=== PATIENT | male | born 1960 | race Caucasian/White ===

== ENCOUNTER → 2019-10-09 16:03 | Outpatient (CLI) | payer BC, SELFPAY ==
[2019-10-09 16:50] LABS: International Normalized Ratio 2.5
== END ==
PROVIDERS: PCP Family Medicine; Referring Provider Family Medicine; Visit Provider Family Medicine
DX: Z86.711 Personal history of pulmonary embolism (principal)
CPT/HCPCS: 85610

== ENCOUNTER 2022-07-17 07:45 | Emergency (ER) | payer BC, SELFPAY ==
[2022-07-17 07:48] VITALS: BP 127/89; PULSE 65; RESP 22; TEMP 36.6; O2SAT 100; BMI 33.7
--- NOTE | 2022-07-17 07:53 | CT_ITS ---
STUDY: CT ABDOMEN AND PELVIS WITHOUT CONTRAST REASON FOR EXAM: Male, 61 years old. Acute onset of left flank pain. History of kidney stones. RADIATION DOSAGE (If Supplied By Facility): CTDIvol = ( 24.44 ) mGy, DLP = ( 1408.84 ) mGycm TECHNIQUE: Transaxial images were obtained from the dome of the diaphragm to the symphysis pubis without oral contrast, and without intravenous contrast. Sagittal and coronal images were reconstructed. Individualized dose optimization techniques were used for this CT. COMPARISON: None. FINDINGS: The visualized lung bases are unremarkable. Coronary artery calcifications. Normal liver. There is a solitary gallstone. This measures 7 mm. Normal spleen. Normal pancreas. Normal bilateral adrenal glands. Normal right kidney. Mild degree of left hydronephrosis and left hydroureter due to a recently passed calculus measuring 4.7 mm. The calculus is at the base of the bladder on the left side just distal to the left ureterovesical junction Normal visualized stomach. Normal small intestine. There are multiple colonic diverticula consistent with diverticulosis. The appendix is visualized and appears normal. There is scattered atherosclerotic calcification of the abdominal aorta and its major visceral branches, without a demonstrated aneurysm. There is an IVC filter in place. There is borderline retroperitoneal lymphadenopathy with enlarged nodes no greater than 10mm in the short axis diameter. Mild degree of increased markings seen in the mesenteric fat at the level of the root of the mesentery. Small lymph nodes are seen within the root of the mesentery. This is a nonspecific finding. Mild degree of bladder wall thickening. There is enlargement of the prostate gland. The prostate measures 5.5 cm x 5.7 cm. This causes indentation at the bladder base. Small bilateral inguinal hernias containing fat. There are diffuse degenerative changes of the visualized lumbar spine. Prior screw and intramedullary arsh fixation device at the L3-L4 and L4-L5 levels. CT/Abdomen/Pelvis without Cont IMPRESSION: 4.7 mm calculus in the base of the bladder on the left side in keeping with recently passed left ureteral calculus. Left hydronephrosis and left hydroureter. Prostatic enlargement with indentation at the bladder base. Nonspecific increased markings in the root of the mesentery with a small mesenteric lymph nodes. Solitary gallstone. Electronically Signed: Tan Agrawal MD at 9:08 EST ,
--- NOTE | 2022-07-17 07:54 | EX.ED.GUMALE ---
HPI History of Present Illness Chief Complaint: Flank Pain Narrative Narrative: 61-year-old male past medical history of DVTs, on blood thinners, previous kidney stones remotely by a few years presents with sudden onset of left flank pain that began approximately 3 hours ago. It woke him from sleep. It sharp and stabbing in his left flank radiating towards the front. He denies any dysuria or hematuria. No exacerbating or alleviating factors. He is nauseated but has not vomited at home, but on arrival to the emergency department vomited once. He has not taken anything for analgesia. No previous abdominal surgeries. PFSH PFSH Home Medications oxycodone-acetaminophen 5 mg-325 mg tablet (Percocet) 1 tab PO Q6H PRN pain 3 days #12 tabs 07/17/22 [Rx Last Taken Unknown] Allergy/AdvReac Type Severity Reaction Status Date / Time No Known Allergies Allergy Verified 07/17/22 07:50 Social History Smoking Status: Never smoker ROS ROS ED ROS Narrative Constitutional: No fever, no chills. HEENT: No sore throat. No neck pain. No loss of vision. No rhinorrhea. Cardiovascular: No chest pain. No palpitations. No pedal edema. Respiratory: No cough, no shortness of breath. Abdominal: No abdominal pain. Positive nausea. 1 episode of vomiting in the emergency department. Genitourinary: No dysuria. No hematuria. Positive left flank pain radiating towards front. Musculoskeletal: No myalgias. No arthralgias. Neurologic: No headaches. No dizziness. No lightheadedness. Skin: No rash. No change in color. Psychiatric: No depression. No anxiety. EXAM Physical Exam Narrative Exam Narrative: Afebrile. Vital signs noted. Appears mildly uncomfortable laying on cot. HEENT: Normocephalic. Atraumatic. PERRL, EOMI. Neck soft and supple. No point tenderness or step off. Cardiovascular: Regular rate and rhythm. No murmurs, rubs, or gallops appreciated. Respiratory: No tachypnea. Lungs clear to auscultation bilaterally. Gastrointestinal: Abdomen soft, nontender, with normoactive bowel sounds. No rebound or guarding. No CVA tenderness to percussion. Neurological: Awake. Alert. Nonfocal, nonlateralizing. Skin: No rash. Normal color. No pallor. Musculoskeletal: No pedal edema. Full range of motion extremities. Const Vital Signs: 07/17/22 07:48 Temperature 97.8 F Temperature Source Temporal Pulse Rate 65 Respiratory Rate 22 H Blood Pressure 127/89 H Blood Pressure Mean 101 Pulse Ox 100 Oxygen Delivery Method Room Air MDM MDM MDM Narrative Medical decision making narrative: Suspicion is high for ureterolithiasis. Given his comorbidities, he was administered morphine and ondansetron. IV fluids were administered at 250 mL/h. Comprehensive work-up was pursued including CBC, BMP, urinalysis, and CT imaging of the left flank without contrast. CBC shows normal white count of 4.7, hemoglobin normal at 14.5, platelet count normal at 164. Electrolyte panel shows normal creatinine of 1.15 with slightly elevated BUN of 19. Urinalysis is negative for infection with 5-[address] of the abdomen and pelvis does show a 4.7 mm stone dependent in the bladder consistent with recently passed kidney stone. He does have left ureteral dilation and hydronephrosis on the left. Although he is feeling improved after morphine, I do feel that now his stone has passed, that he can be discharged safely home with follow-up. I wrote him a prescription for 12 Percocet tablets should his pain return. He is already on a blood thinner for DVTs so I do not feel a prescription for NSAIDs would be beneficial including the increased risk of bleeding. He was referred to Dr. Moon. I feel he can be discharged safely home with follow-up. Return instructions were reviewed. Disposition is discharged home in stable condition. Lab Data Attestation: I reviewed the patient's lab results. Labs: Laboratory Results - last 24 hr 07/17/22 07/17/22 07/17/22 08:04 08:04 08:16 WBC 4.7 RBC 5.10 Hgb 14.5 Hct 43.1 MCV 84.5 MCH 28.4 MCHC 33.6 RDW Std Deviation 44.3 H RDW Coeff of [place] 14.3 Plt Count 164 MPV 10.1 Immature Gran % (Auto) 0.200 Neut % (Auto) 56.2 Lymph % (Auto) 30.6 [place] % (Auto) 8.5 Eos % (Auto) 3.2 Baso % (Auto) 1.3 H Absolute Neuts (auto) 2.6 Absolute Lymphs (auto) 1.43 Nucleated RBC % 0 Sodium 140 Potassium 4.0 Chloride 103 Carbon Dioxide 27.0 Anion Gap 10 BUN 19 H Creatinine 1.15 Estim Creat Clear Calc 79.60 Est GFR (MDRD) Af Amer 83 Est GFR (MDRD) Non-Af 68 BUN/Creatinine Ratio 16.5 Glucose 140 H Calcium 8.6 Urine Color Yellow Urine Clarity Clear Urine pH 6.5 Ur Specific [place] 1.020 Urine Protein Negative Urine Glucose (UA) Normal Urine Ketones Negative Urine Occult Blood 150 H Urine Nitrite Negative Urine Bilirubin Negative Urine Urobilinogen Normal Ur Leukocyte Esterase Negative Urine RBC 5-10 SEEN Urine WBC 0 SEEN Ur Squamous Epith Cells 0-5 SEEN Urine Bacteria 0 SEEN Urine Mucus 0 SEEN Radiography Diagnostic Testing: Clinical Impression(s) from Imaging Studies Abdomen/Pelvis CT 07/17/22 07:53 IMPRESSION: 4.7 mm calculus in the base of the bladder on the left side in keeping with recently passed left ureteral calculus. Left hydronephrosis and left hydroureter. Prostatic enlargement with indentation at the bladder base. Nonspecific increased markings in the root of the mesentery with a small mesenteric lymph nodes. Solitary gallstone. Electronically Signed: Tan Agrawal MD at 9:08 EST , Discharge Plan Triage Chief Complaint: Flank Pain ED Provider: Ronald Sen Dx/Rx/DC Orders Clinical Impression: Hydronephrosis with ureteral calculus, Left flank pain Instructions: ED Kidney Stone, Passed, ED Kidney Stone w/ Colic Prescriptions: New oxycodone-acetaminophen [Percocet] 5-325 mg tablet 1 tab PO Q6H PRN (Reason: pain) 3 Days Qty: 12 0RF Stand Alone Forms: ED Work / School Excuse Primary Care Provider: Danny Linda Referrals: Danny Linda MD [Primary Care Provider] - Chris Moon MD [Med Staff - Active Staff] - 3-5 Days if not improving Disposition Disposition: Home, Self Care
[2022-07-17] MEDS: Morphine 4 MG/ML Syringe IV ×2 (08:08→09:17)
[2022-07-17] MEDS: 0.9% Normal Saline 1,000 ML 250 ML IV (08:08)
[2022-07-17] MEDS: Ondansetron 4 MG/2 ML Vial IV (08:08)
[2022-07-17 08:11] LABS: Absolute Lymphocyte Count 1.43 X10^3/uL (0.83-4.51); Absolute Neutrophil Count 2.6 X10^3/uL (2.0-7.7); Basophil# 0.06 X10^3/uL; Basophil% 1.3 % (0-1); Eosinophil# 0.15 X10^3/uL; Eosinophils% 3.2 % (0-5); Hematocrit 43.1 % (40-54); Hemoglobin 14.5 g/dL (13.0-16.5); Lymphocyte # 1.43 X10^3/ul (0.83-4.51); Lymphocyte % 30.6 % (19-41); Mean Corp Hgb Conc 33.6 g/dL (32-36); Mean Corpuscular Hgb 28.4 pg (27.0-32.0); Mean Corpuscular Volume 84.5 fL (80-94); Mean Platelet Vol. 10.1 fl (6.2-12.0); Monocyte% 8.5 % (0-10); NRBC Flagged by Analyzer 0 % (0-5); Neutrophil # 2.63 X10^3/uL (2.7-7.7); Neutrophil % 56.2 % (47-70); Platelet Count 164 K/mm3 (150-450); RBC Distribution Width CV 14.3 % (11.6-14.6); RBC Distribution Width SD 44.3 fl (35.1-43.9); White Blood Count 4.7 K/mm3 (4.4-11.0)
[2022-07-17 08:18] LABS: Bacteria 0 SEEN /hpf (None Seen); Mucous, Urine 0 SEEN /hpf (<or=2+); White Blood Cells 0 SEEN /hpf (0-5)
[2022-07-17 08:20] LABS: Anion Gap 10 (5-15); BUN 19 mg/dL (7-18); BUN/Creat Ratio 16.5 RATIO (10-20); Calcium,Total 8.6 mg/dL (8.5-10.1); Chloride 103 mmol/L (98-107); Creatinine, Serum 1.15 mg/dL (0.70-1.30); EST Glomerular Filtration Rate 68 mL/min (>60); Est Glom Filt Rate - Afr Amer 83 mL/min (>60); Glucose 140 mg/dL (74-106); Sodium Level 140 mmol/L (136-145)
[2022-07-17 08:21] LABS: Color, Urine Yellow (Yellow); Glucose, Dipstick Normal (Normal); Ketone-Dipstick Negative (Negative); Leukocyte Esterase-Dipstick Negative /ul (Negative); Nitrite-Dipstick Negative (Negative); Occult Blood-Urine 150 /ul (Negative); Protein-Dipstick Negative (Negative); Urine Bilirubin Dipstick Negative (Negative); Urine Clarity Clear (Clear); Urine Urobilinogen Normal (Normal); Urine pH 6.5 (5.0 - 8.0)
[2022-07-17 08:29] LABS: Red Blood Cells-Urine 5-10 SEEN /hpf (0-5); Squamous Epithelial Cells - UA 0-5 SEEN /hpf (0-5)
== END 2022-07-17 10:23 | disposition home or self-care (01) ==
PROVIDERS: Emergency Provider Emergency Medicine; PCP Family Medicine; Visit Provider Emergency Medicine
DX: N13.2 Hydronephrosis with renal and ureteral calculous obstruction (principal); R10.9 Unspecified abdominal pain; Z86.718 Personal history of other venous thrombosis and embolism
CPT/HCPCS: 74176; 80048; 81001; 85025; 96374; 96375; 96376; 99283; J7030; A4216; J2405